=== PATIENT | male | born 1950 ===

== ENCOUNTER 2020-08-15 06:00 | Outpatient (RCR) | payer BC, SELFPAY | END 2020-09-07 23:59 | disposition home or self-care (01) | LOC: GPT 06:00 | PROVIDERS: PCP Family Medicine; Referring Provider Orthopaedic Surgery; Visit Provider Orthopaedic Surgery | DX: M77.01 Medial epicondylitis, right elbow (principal) | CPT/HCPCS: 97032; 97110; 97161; 97530 ==

== ENCOUNTER 2020-09-08 06:00 | Outpatient (RCR) | payer BC, SELFPAY | END 2020-10-08 23:59 | disposition home or self-care (01) | LOC: GPT 06:00 | PROVIDERS: PCP Family Medicine; Referring Provider Orthopaedic Surgery; Visit Provider Orthopaedic Surgery | DX: M77.01 Medial epicondylitis, right elbow (principal) | CPT/HCPCS: 97032; 97110; 97164; 97530 ==